=== PATIENT | male | born 1970 | race Caucasian/White ===

== ENCOUNTER 2023-09-04 01:13 | Emergency (ER) | payer BC, SELFPAY ==
[2023-09-04 01:15] VITALS: BP 161/105; PULSE 86; RESP 18; TEMP 36.1; O2SAT 96
--- NOTE | 2023-09-04 01:23 | ED.GENADULT ---
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 Does not remember anything falling in his eye. His eyes gradually gotten red more painful he rates this pain as 5/10. Says his eyes little blurry. Denies any double vision. Is not taking anything for pain. Says he could not sleep tonight. He says it feels just like when he had a corneal abrasion in his eye. He has a foreign body sensation in his right eye at the 12 o'clock position is worse when he blinks. Patient denies any fever cough sore throat runny nose problems eating or drinking voiding or stooling swelling lumps or bumps difficulty breathing any pain elsewhere, dizziness or lightheadedness rash or itching weakness or numbness or any other complaints. 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 Related Data Allergies Allergy/AdvReac Type Severity Reaction Status Date / Time No Known Allergies Allergy Unverified 12/21/21 12:27 Review of Systems Review of Systems: All systems reviewed & are unremarkable except as noted in HPI and below [facility] Social History Social History Smoking status: Current every day smoker Exam Narrative: white male patient no apparent distress. Head normocephalic atraumatic. Eyes right eye conjunctiva is injected sclera is nonicteric. His right eyelid was everted and no foreign body was seen. He did have increased inflammation of the conjunctiva at the 12 o'clock position on his right eyelid. Tetracaine drops x2 were used to anesthetize the cornea then fluorescein strips were used but no for fluorescein uptake by the cornea was seen. The eye was then irrigated with saline. Patient tolerated procedure well. His left eye looked more normal there is just a slight inflammation of his conjunctiva. Pupils are equal round react to light extraocular movements were intact. Neurological motor and sensory grossly intact gait was normal patient was alert and oriented x4. Course Vital Signs Vital signs: Vital Signs Temperature 36.1 C L 09/04/23 01:15 Pulse Rate 86 09/04/23 01:15 Respiratory Rate 18 09/04/23 01:15 Blood Pressure 161/105 H 09/04/23 01:15 Pulse Oximetry 96 09/04/23 01:15 Oxygen Delivery Room Air 09/04/23 01:15 Temperature 36.1 C L 09/04/23 01:15 Pulse Rate 86 09/04/23 01:15 Respiratory Rate 18 09/04/23 01:15 Blood Pressure 161/105 H 09/04/23 01:15 Pulse Oximetry 96 09/04/23 01:15 Oxygen Delivery Room Air 09/04/23 01:15 Medical Decision Making [facility] Narrative Medical decision making narrative: ? Patient placed in room: One ? History and physical was performed. 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 Fluorescein exam was negative in the right eye Independently Interpreted by me: Shared decision Making: evaluation was discussed all questions were asked and answered patient agreed with the plan. He would take Cipro Floxin 0.3% drops every 4 hours while awake for 7 days. He would wash hands before and after putting the drops in. He was offered a Toradol shot for pain but instead would
--- NOTE | 2023-09-04 01:27 | PC.NURSE ---
Dr Norman at the bedside
[2023-09-04] MEDS: TETRACAINE HCL 0.5% OPHTH SOLN 4 ML BTL 2 DROP EACH EYE (01:30)
[2023-09-04] MEDS: FLUORESCEIN SOD 1 MG/STRIP EACH EYE (01:31)
[2023-09-04] MEDS: CIPROFLOXACIN HCL 0.3% OP SOLN 2.5 ML BTL 2 DROP EACH EYE (01:31)
[2023-09-04 02:02] VITALS: BP 153/103; PULSE 87; RESP 18; O2SAT 95
== END 2023-09-04 02:02 | disposition home or self-care (01) ==
PROVIDERS: Emergency Provider Emergency Medicine
DX: H10.9 Unspecified conjunctivitis (principal); F17.200 Nicotine dependence, unspecified, uncomplicated
CPT/HCPCS: 99283

== ENCOUNTER 2024-07-01 23:04 | Emergency (ER) | payer SELFPAY ==
--- OUTSIDE RECORDS SUMMARY | 2024-07-01 23:06 | XMS_ITS | Referral Summary ---
Author Organization [facility] Address [address] [place] [address] Care Team Providers Care Ticket Clerk Name Role Phone Sin Sanchez Primary Care Provider [phone] Allergies No known active allergies Medications levoFLOXacin (LEVAQUIN) 500 mg tabletIndicatio ns:Urinary Tract/Genitouri nary Infection Take 1 tablet (500 mg total) by mouth daily 10 tablet 1 Active Additional Information Patient not taking.Reported on 03/10/2021 HYDROcodone-sam taminophen (NORCO) 5-325 mg per tabletIndicatio ns:Pain Take 1-2 tablets by mouth every 4 (four) hours as needed for pain Do not exceed 8 tablets/day. 12 tablet 1 Active Additional Information Patient not taking.Reported on 03/10/2021 Active Problems Problem Noted Date Diagnosed Date Primary osteoarthritis of right knee 03/10/2021 Social History Tobacco Use Types Packs/Day Years Used Date Smoking Tobacco: Every Day Personal Safety Answer Date Recorded Getting School Help Needed Not on file 04/16 Sex and Gender Information Value Date Recorded Sex Assigned at Not on file Legal Sex Male 2:14 PM CDT Gender Identity Not on file Sexual Orientation Not on file Last Filed Vital Signs Vital Sign Reading Time Taken Comments Blood Pressure 130/84 03/10/2021 2:14 PM 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 Pulse 79 03/10/2021 2:14 PM DISABILITY 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 Temperature 36.7 C (98 F) 09/01/2020 2:40 PM CDT Respiratory Rate 18 09/01/2020 2:41 PM CDT Oxygen Saturation 97% 09/01/2020 2:41 PM CDT Inhaled Oxygen Concentration - - Weight 93.4 kg (206 lb) 03/10/2021 2:14 PM DISABILITY 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 Height 177.8 cm (5' 10 ) 03/10/2021 2:14 PM DISABILITY 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 Body Mass Index 29.56 03/10/2021 2:14 PM DISABILITY 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 Plan of Treatment Not on file Insurance [employer] Care Teams Ticket Clerk Relationship Specialty Start Date End Date Sin Sanchez PA [address] [place] [address] PCP - General 09/01/20
--- OUTSIDE RECORDS SUMMARY | 2024-07-01 23:06 | XMS_ITS | Data Portability ---
Author Organization [facility] Address [address] [place] [address] Care Team Providers Care Pediatric Urologist Name Role Phone NISA SHEPHERD Primary Care Provider Assessment No assessment recorded. Plan of Treatment Reminders Order Date Submit Date Provider Last Modified By Organization Details Last Modified Time Details Appointments None recorded. Lab noninvasiv e colorectal cancer DNA + occult blood screening, QL, stool 2021 [facility] (Cologuard Orders Only), [address], [address], [place], [address], 17:57:40 CBC 2021 [facility], [address] [place] [address], [address], [place], [address], 06:17:04 CMP, serum or plasma 2021 [facility], [address] [place] [address], [address], [place], [address], 06:17:02 lipid panel, serum 2021 [facility], [address] [place] [address], [address], [place], [address], 06:17:02 HbA1c (hemoglobi n A1c), blood 2021 [facility] In-Office Order, Internal Use Only DO Not Attach Compendium DO Not Attach Compendium, Do Not Delete/merge, [id number] 2 19:28:32 PSA, serum or plasma 2021 022 [facility], [address] [place], [place] [address]d[address]n [address], [address], [place], [address], 2 15:09:36 fecal occult blood, immunoassa y, stool 2019 [facility], [address] [place] [address], [address], [place], [address], 0 18:14:03 CBC 2019 [facility], [address] [place] [address], [address], [place], [address], 0 15:09:34 CMP, serum or plasma 2019 020 [facility], [address] [place] [address], [address], [place], [address], 0 15:09:33 lipid panel, serum 2019 [facility], [address] [place] [address], [address], [place], [address], 0 15:09:35 PSA, serum or plasma 2019 020 [facility], [address] [place] [address], [address], [place], [address], 0 15:09:36 Referral None recorded. Procedures None recorded. Surgeries None recorded. Imaging XR, knee 2020 021 [facility], [address], [place], [address], 1 13:02:19 Medication Orders None recorded. Patient TargetsNo targets recorded. Patient InstructionsNo instructions recorded. Reason for Referral None Reported. Results Created Date Observation Date Name Description Value Unit Range Abnormal Flag Note LastModifiedBy Organization Detail LastModifiedTime 12/04/1912/06/2019 CMP, serum or plasm a glucose 105 mg/dL 65-99 above high normal Not Available [facility] ([facility]) [address] [place], [address], 12/06/2019 15:09:33 12/04/1912/06/2019 CMP, serum or plasm a BUN 15 mg/dL 6-24 Not Available [facility] ([facility]) [address] [place], [address], 12/06/2019 15:09:33 12/04/1912/06/2019 CMP, serum or plasm a creatinine 0.90 mg/dL 0.76-1 .27 Not Available [facility] ([facility]) [address] [place], [address], 12/06/2019 15:09:33 12/04/1912/06/2019 CMP, serum or plasm a eGFR if nonafricn AM 99 mL/mi n/1.7 3 >59 Not Available [facility] ([facility]) [address] [place], [address], 12/06/2019 15:09:33 12/04/1912/06/2019 CMP, serum or plasm a eGFR if africn AM 114 mL/mi n/1.7 3 >59 Not Available [facility] ([facility]) [address] [place], [address], 12/06/2019 15:09:33 12/04/1912/06/2019 CMP, serum or plasm a BUN/creatini ne ratio 17 9-20 Not Available [facility] ([facility]) [address] [place], [address], 12/06/2019 15:09:33 12/04/19 20 12/06/2019 CMP, serum or plasm a sodium 140 mmol/ L 134-14 4 Not Available [facility] ([facility]) [address] [place], [address], 12/06/2019 15:09:33 12/04/19 20 12/06/2019 CMP, serum or plasm a potassium 4.0 mmol/ L 3.5-5. 2 Not Available [facility] ([facility]) [address] [place], [address], 12/06/2019 15:09:33 12/04/1912/06/2019 CMP, serum or plasm a chloride 105 mmol/ L 96-106 Not Available [facility] ([facility]) [address] [place], [address], 12/06/2019 15:09:33 12/04/1912/06/2019 CMP, serum or plasm a carbon dioxide, total 24 mmol/ L 20- Not Available [facility] ([facility]) [address] [place], [address], 12/06/2019 15:09:33 12/04/1912/06/2019 CMP, serum or plasm a calcium 8.9 mg/dL 8.7-10 .2 Not Available [facility] ([facility]) [address] [place], [address], 12/06/2019 15:09:33 12/04/1912/06/2019 CMP, serum or plasm a protein, total 7.0 g/dL 6.0-8. 5 Not Available [facility] ([facility]) [address] [place], [address], 12/06/2019 15:09:33 12/04/19 20 12/06/2019 CMP, serum or plasm a albumin 4.3 g/dL 3.8-4. 9 Not Available [facility] ([facility]) [address] [place], [address], 12/06/2019 15:09:33 12/04/19 20 12/06/2019 CMP, serum or plasm a globulin, total 2.7 g/dL 1.5-4. 5 Not Available [facility] ([facility]) [address] [place], [address], 12/06/2019 15:09:33 12/04/19 20 12/06/2019 CMP, serum or plasm a A/G ratio 1.6 1.2-2. 2 Not Available [facility] ([facility]) [address] [place], [address], 12/06/2019 15:09:33 12/04/19 20 12/06/2019 CMP, serum or plasm a bilirubin, total 0.3 mg/dL 0.0-1. 2 Not Available [facility] ([facility]) [address] [place], [address], 12/06/2019 15:09:33 12/04/19 20 12/06/2019 CMP, serum or plasm a alkaline phosphatase 162 IU/L 39-117 above high normal Not Available [facility] ([facility]) [address] [place], [address], 12/06/2019 15:09:33 12/04/19 20 12/06/2019 CMP, serum or plasm a AST (SGOT) 25 IU/L 0-40 Not Available [facility] ([facility]) [address] [place], [address], 12/06/2019 15:09:33 12/04/19 20 12/06/2019 CMP, serum or plasm a ALT (SGPT) 30 IU/L 0-44 Not Available [facility] ([facility]) [address] [place], [address], 12/06/2019 15:09:33 12/04/19 20 12/06/2019 CBC WBC 7.7 x10e3 /uL 3.4-10 .8 Not Available [facility] ([facility]) [address] [facility], [place], [address], 12/06/2019 15:09:34 12/04/19 20 12/06/2019 CBC RBC 4.80 x10e6 /uL 4.14-5 .80 Not Available [facility] ([facility]) [address] [facility], [place], [address], 12/06/2019 15:09:34 12/04/19 20 12/06/2019 CBC hemoglobin 15.8 g/dL 13.0-1 7.7 Not Available [facility] ([facility]) [address] [place], [address], 12/06/2019 15:09:34 12/04/19 20 12/06/2019 CBC hematocrit 46.4 % 37.5-5 1.0 Not Available [facility] ([facility]) [address] [place], [address], 12/06/2019 15:09:34 12/04/1912/06/2019 CBC MCV 97 fL 79-97 Not Available [facility] ([facility]) [address] [place], [address], 12/06/2019 15:09:34 12/04/19 20 12/06/2019 CBC MCH 32.9 pg 26.6-3 3.0 Not Available [facility] ([facility]) [address] [place], [address], 12/06/2019 15:09:34 12/04/19 20 12/06/2019 CBC MCHC 34.1 g/dL 31.5-3 5.7 Not Available [facility] ([facility]) [address] [place], [address], 12/06/2019 15:09:34 12/04/19 20 12/06/2019 CBC RDW 12.4 % 11.6-1 5.4 Not Available [facility] ([facility]) [address] [facility], [place], [address], 12/06/2019 15:09:34 12/04/19 20 12/06/2019 CBC platelets 246 x10e3 /uL 150-45 0 Not Available [facility] ([facility]) [address] [facility], [place], [address], 12/06/2019 15:09:34 12/04/19 20 12/06/2019 CBC NRBC [employer] Not Available [facility] ([facility]) [address] [place], [address], 12/06/2019 15:09:34 12/04/19 20 12/06/2019 lipid panel , serum cholesterol, total 175 mg/dL 100-19 9 Not Available [facility] ([facility]) [address] [place], [address], 12/06/2019 15:09:35 12/04/19 20 12/06/2019 lipid panel , serum triglyceride s 204 mg/dL 0-149 above high normal Not Available [facility] ([facility]) [address] [place], [address], 12/06/2019 15:09:35 12/04/19 20 12/06/2019 lipid panel , serum HDL cholesterol 38 mg/dL >39 below low normal Not Available [facility] ([facility]) [address] [place], [address], 12/06/2019 15:09:35 12/04/19 20 12/06/2019 lipid panel , serum VLDL cholesterol geetha 35 mg/dL 5-40 Not Available [facility] ([facility]) [address] [place], [address], 12/06/2019 15:09:35 12/04/19 20 12/06/2019 lipid panel , serum LDL chol calc ([facility]) 102 mg/dL 0-99 above high normal Not Available [facility] ([facility]) [address] [facility] [place], [address], 12/06/2019 15:09:35 12/04/19 20 12/06/2019 lipid panel , serum comment: [employer] Not Available [facility] ([facility]) [address] [facility], [place], [address], 12/06/2019 15:09:35 12/04/19 20 12/06/2019 PSA, serum or plasm a prostate specific Ag, serum 1.0 NG/mL 0.0-4. 0 Geovanny ECLIA metho dolog y. Accor ding to the Ameri can Urolo gical Assoc iatio n, Serum PSA shoul d decre ase and remai n at undet ectab le level s after radic al prost atect abrahan. The AUA defin es bioch emica l recur rence as an initi al PSA value 0.2 ng/mL or great er follo wed by a subse quent confi rmato ry PSA value 0.2 ng/mL or great er. Value s obtai angus with diffe rent assay metho ds or kits canno t be used inter mendoza eably . Resul ts canno t be inter prete d as absol jassi evide nce of the prese nce or absen ce of heidy mora se. Not Available [facility] ([facility]) [address] [facility], [place], [address], 12/06/2019 15:09:36 12/04/19 20 12/06/2019 PSA, serum or plasm a pdf . Not Available [facility] ([facility]) [address] [facility], [place], [address], 12/06/2019 15:09:36 12/04/19 20 12/06/2019 cardi ovasc ular asses sment panel , serum interpretati on Note Suppl ement al repor t is avail able. Not Available [facility] ([facility]) [address] [facility], [place], [address], 12/06/2019 15:09:37 10/2012/06/2019 cardi jeremy siddiqui asses sment panel , serum pdf . Not Available [facility] ([facility]) [address] [place], [address], 12/06/2019 15:09:37 12/09/1912/09/2021 LIPID PANEL cholesterol, total 196.5 mg/dL 140.0- 200.0 Not Available [facility] ([facility]) [address] [place], [address], 12/10/2021 06:17:02 12/09/1912/09/2021 LIPID PANEL triglyceride s 151 mg/dL <=150 above high normal Not Available [facility] ([facility]) [address] [place], [address], 12/10/2021 06:17:02 12/09/1912/09/2021 LIPID PANEL HDL cholesterol 39.5 mg/dL 40.0-1 00.0 below low normal Not Available [facility] ([facility]) [address] [place], [address], 12/10/2021 06:17:02 12/09/1912/09/2021 LIPID PANEL VLDL cholesterol geetha 30.20 mg/dL 5.00-4 0.00 Not Available [facility] ([facility]) [address] [place], [address], 12/10/2021 06:17:02 12/09/1912/09/2021 LIPID PANEL LDL chol calc ([facility]) 129.9 Not Available [facility] ([facility]) [address] [place], [address], 12/10/2021 06:17:02 12/09/1912/09/2021 COMP. METAB OLIC PANEL (14) glucose 87 mg/dL 65-99 ANION GP 18.0 mmol/ L N OSMOL 284.0 mOsM/ L N REFER ENCE RANGE : 275.0 -301. 0 Not Available [facility] ([facility]) [address] [facility] [place], [address], 12/10/2021 06:17:02 12/09/1912/09/2021 COMP. METAB OLIC PANEL (14) BUN 18 mg/dL 8-26 Not Available [facility] ([facility]) [address] [facility] [place], [address], 12/10/2021 06:17:02 12/09/19 22 12/09/2021 COMP. METAB OLIC PANEL (14) creatinine 0.81 mg/dL 0.50-1 .40 Not Available [facility] ([facility]) [address] [facility] [place], [address], 12/10/2021 06:17:02 12/09/19 22 12/09/2021 COMP. METAB OLIC PANEL (14) eGFR 105 mL/mi n/1.7 3 >=60 Not Available [facility] ([facility]) [address] [facility] [place], [address], 12/10/2021 06:17:02 12/09/19 22 12/09/2021 COMP. METAB OLIC PANEL (14) BUN/creatini ne ratio 21.9 Not Available [facility] ([facility]) [address] [facility] [place], [address], 12/10/2021 06:17:02 12/09/19 22 12/09/2021 COMP. METAB OLIC PANEL (14) sodium 142.0 mmol/ L 136.0- 144.0 Not Available [facility] ([facility]) [address] [facility] [place], [address], 12/10/2021 06:17:02 12/09/19 22 12/09/2021 COMP. METAB OLIC PANEL (14) potassium 4.5 mmol/ L 3.5-5. 3 Not Available [facility] ([facility]) [address] [facility] [place], [address], 12/10/2021 06:17:02 12/09/19 22 12/09/2021 COMP. METAB OLIC PANEL (14) chloride 104 mmol/ l 101-11 1 Not Available [facility] ([facility]) [address] [facility] [place], [address], 12/10/2021 06:17:02 12/09/19 22 12/09/2021 COMP. METAB OLIC PANEL (14) carbon dioxide, total 24.5 mmol/ L 21.0-3 2.0 Not Available [facility] ([facility]) [address] [facility] [place], [address], 12/10/2021 06:17:02 12/09/19 22 12/09/2021 COMP. METAB OLIC PANEL (14) calcium 9.4 mg/dL 8.2-10 .0 Not Available [facility] ([facility]) [address] [facility] [place], [address], 12/10/2021 06:17:02 12/09/19 22 12/09/2021 COMP. METAB OLIC PANEL (14) protein, total 6.7 g/dL 6.7-8. 2 Not Available [facility] ([facility]) [address] [facility] [place], [address], 12/10/2021 06:17:02 12/09/19 22 12/09/2021 COMP. METAB OLIC PANEL (14) albumin 4.3 g/dL 3.5-5. 5 Not Available [facility] ([facility]) [address] [facility] [place], [address], 12/10/2021 06:17:02 12/09/1912/09/2021 COMP. METAB OLIC PANEL (14) globulin, total 2.4 g/dL 1.5-4. 5 Not Available [facility] ([facility]) [address] [place], [address], 12/10/2021 06:17:02 12/09/19 22 12/09/2021 COMP. METAB OLIC PANEL (14) A/G ratio 1.8 Not Available [facility] ([facility]) [address] [facility] [place], [address], 12/10/2021 06:17:02 12/09/19 22 12/09/2021 COMP. METAB OLIC PANEL (14) bilirubin, total 0.3 mg/dL 0.0-1. 2 Not Available [facility] ([facility]) [address] [facility], [place], [address], 12/10/2021 06:17:02 12/09/19 22 12/09/2021 COMP. METAB OLIC PANEL (14) alkaline phosphatase 150.6 IU/L 42.0-1 21.0 above high normal Not Available [facility] ([facility]) [address] [facility], [place], [address], 12/10/2021 06:17:02 12/09/19 22 12/09/2021 COMP. METAB OLIC PANEL (14) AST (SGOT) 25.6 U/L 10.0-4 2.0 Not Available [facility] ([facility]) [address] [facility], [place], [address], 12/10/2021 06:17:02 12/09/19 22 12/09/2021 COMP. METAB OLIC PANEL (14) ALT (SGPT) 36.5 U/L 10.0-6 0.0 Not Available [facility] ([facility]) [address] [place], [address], 12/10/2021 06:17:02 12/09/1912/09/2021 CBC, PLATE LET, NO DIFFE RENTI AL WBC 6.8 K/uL 3.4-10 .8 Not Available [facility] ([facility]) [address] [place], [address], 12/10/2021 06:17:03 12/09/1912/09/2021 CBC, PLATE LET, NO DIFFE RENTI AL RBC 4.9 M/uL 4.5-6. 3 Not Available [facility] ([facility]) [address] [facility], [place], [address], 12/10/2021 06:17:03 12/09/19 22 12/09/2021 CBC, PLATE LET, NO DIFFE RENTI AL hemoglobin 15.8 g/dL 13.5-1 7.5 Not Available [facility] ([facility]) [address] [place], [address], 12/10/2021 06:17:03 12/09/1912/09/2021 CBC, PLATE LET, NO DIFFE RENTI AL hematocrit 46.0 % 40.0-5 2.0 Not Available [facility] ([facility]) [address] [place], [address], 12/10/2021 06:17:03 12/09/1912/09/2021 CBC, PLATE LET, NO DIFFE RENTI AL MCV 95 fL 80-95 Not Available [facility] ([facility]) [address] [place], [address], 12/10/2021 06:17:03 12/09/1912/09/2021 CBC, PLATE LET, NO DIFFE RENTI AL MCH 32 pg 27-32 Not Available [facility] ([facility]) [address] [place], [address], 12/10/2021 06:17:03 12/09/1912/09/2021 CBC, PLATE LET, NO DIFFE RENTI AL MCHC 34 g/dL 32-36 Not Available [facility] ([facility]) [address] [place], [address], 12/10/2021 06:17:03 12/09/1912/09/2021 CBC, PLATE LET, NO DIFFE RENTI AL RDW 12.3 % 11.5-1 4.5 Not Available [facility] ([facility]) [address] [facility], [place], [address], 12/10/2021 06:17:03 12/09/1912/09/2021 CBC, PLATE LET, NO DIFFE RENTI AL platelets 229 K/uL 155-37 9 MPV 10.2 FL 8.9-1 2.7 N Not Available [facility] ([facility]) [address] [facility], [place], [address], 12/10/2021 06:17:03 12/09/1912/09/2021 CBC, PLATE LET, NO DIFFE RENTI AL NRBC 0 % Not Available [facility] ([facility]) [address] [facility], [place], [address], 12/10/2021 06:17:03 12/09/1912/10/2021 PSA (SERI AL MONIT OR) prostate specific Ag 0.8 NG/mL 0.0-4. 0 Geovanny ECLIA metho dolog y. Accor ding to the Ameri can Urolo gical Assoc iatio n, Serum PSA shoul d decre ase and remai n at undet ectab le level s after radic al prost atect abrahan. The AUA defin es bioch emica l recur rence as an initi al PSA value 0.2 ng/mL or great er follo wed by a subse quent confi rmato ry PSA value 0.2 ng/mL or great er. Value s obtai angus with diffe rent assay metho ds or kits canno t be used inter mendoza eably . Resul ts canno t be inter prete d as absol jassi evide nce of the prese nce or absen ce of heidy wrighta se. Not Available [facility] ([facility]) [address] [facility], [place], [address], 12/10/2021 15:09:36 10/25/20 22 12/10/2021 PSA (SERI AL MONIT OR) pdf . Not Available [facility] ([facility]) [address] [facility], [place], [address], 12/10/2021 15:09:36 12/09/19 22 12/09/2021 CARDI OVASC ULAR REPOR T interpretati on Note Suppl ement al repor t is avail able. Not Available [facility] ([facility]) [address] [facility], [place], [address], 12/10/2021 06:17:03 12/09/19 22 12/09/2021 CARDI OVASC ULAR REPOR T pdf . Not Available [facility] ([facility]) [address] [facility], [place], [address], 12/10/2021 06:17:03 12/09/19 22 12/08/2021 HbA1c (hemo globi n A1c), blood HbA1c 5.6 Not Available In-Office Order Internal Use Only DO Not Attach Compendium DO Not Attach Compendium, Do Not Delete/merge, [id number] 12/08/2021 18:43:29 12/23/19 22 12/22/2021 COLOG UARD cologuard result reportable Negati ve negati ve NEGAT SADIA TEST RESUL T. A negat sadia Colog uard resul t indic ates a low likel ihood that a color ectal cance r (CRC) or advan balwinder adeno ma (bobbi omato us polyp s with more advan balwinder pre-m align ant featu res) is prese nt. The chanc e that a perso n with a negat sadia Colog uard test has a color ectal cance r is less than 1 in 1500 (nega tive predi ctive value >99.9 %) or has an advan balwinder adeno ma is less than 5.3% (nega tive predi ctive value 94.7% ). These data are based on a prosp ectiv e cross -sect ional study of 10,00 0 indiv idual s at [facility] risk for color ectal cance r who were scree angus with both Colog uard and colon oscop y. (Impe riale T. et al, N Engl J Med 2014; 370(1 4):12 86-12 97) The marj l value (refe rence range ) for this assay is negat sadia. COLOG UARD RE-SC REENI NG RECOM MENDA TION: Perio dic color ectal cance r scree josh is an impor tant part of preve ntive healt hcare for asymp tomat ic indiv idual s at [facility] risk for color ectal cance r. Follo wing a negat sadia Colog uard resul t, the Ameri can Cance r Socie ty and U.S. Multi -Soci ety Task Force scree josh guide lines recom mend a Colog uard re-sc reeni ng inter doug of 3 years . Refer ences : Ameri can Cance r Socie ty Guide line for Color ectal Cance r Scree josh: https ://bethany w.can cer.o rg/ca ncer/ colon -rect al-ca ncer/ detec tion- diagn osis- stagi ng/ac s-rec ommen datio ns.ht ml.; Angel DK, Arthur crow CR, Brian HarringtonK, Color ectal Cance r Scree josh: Recom menda tions for Physi cians and Patie nts from the U.S. Multi -Soci ety Task Force on Color ectal Cance r Scree josh , Am Juany silvantalejandro rolog y 2017; 112:1 016-1 030. TEST DESCR IPTIO N: [place] site algor ithmi c silver sis of stool DNA-b iomar kers with hemog lobin immun oassa y. Quant itati ve value s of indiv idual bioma rkers are not repor table and are not assoc iated with indiv idual bioma rker resul t refer ence range s. Colog uard is inten ded for color ectal cance r scree josh of adult s of eithe r sex, 45 years or older , who are at [facility] for color ectal cance r (CRC) . Colog uard has been appro madhu for use by the U.S. FDA. The perfo rmanc e of Colog uard was estab lishe d in a cross secti onal study of [facility] adult s aged 50-84 . Colog uard perfo rmanc e in patie nts ages 45 to 49 years was estim ated by maisha-g landry silver sis of near- age group s. Colon oscop ies perfo rmed for a posit sadia resul t may find as the most clini fred signi fican t lesio n: color ectal cance r [4.0% ], advan balwinder adeno ma (incl uding sessi le suresh flora polyp s great er than or equal to 1cm diame ter) [20%] or non- advan balwinder adeno ma [31%] ; or no color ectal neopl veto [45%] . These estim ates are deriv ed from a prosp ectiv e cross -sect ional scree josh study of 0 indiv idual s at [facility] risk for color ectal cance r who were scree angus with both Colog uard and colon oscop y. (Pieter Venegas et al, N Engl J Med 2014; 370(1 4):12 86-12 97.) Colog uard may produ ce a false negat sadia or false posit sadia resul t (no color ectal cance r or preca ncero us polyp prese nt at colon oscop y follo w up). A negat sadia Colog uard test resul t does not guara ntee the absen ce of CRC or advan balwinder adeno ma (pre- cance r). The curre nt Colog uard scree josh inter doug is every 3 years . (Amer ican Cance r Socie ty and U.S. Multi -Soci ety Task Force ). Colog uard perfo rmanc e data in a 0 patie nt pivot al study using colon oscop y as the refer ence metho d can be acces sed at the follo wing locat ion: www.e xactl abs.c om/re sults . Addit ional descr iptio n of the Colog uard test proce ss, warni ngs and preca ution s can be found at www.c maryjane ken.emily om. Not Available [facility] (Cologuard Orders Only) [address], [place], [address], 12/28/2021 17:57:39 02/12/20 21 02/11/2021 XR, knee No observ ation record ed. [facility] [address], [place], [address], 02/11/2021 13:03:18 Result Notes None recorded. Procedures Surgical History Date Name Laterality Status Provider Name and Address Organization Details Recorded Time Appendectomy completed Sophia Prather MA [place] - [place] 09/22/2016 15:32:26 Imaging Results Imaging Date Name Status LastModified by Organiz ation Details LastModified Time 02/11/2021 XR, knee completed [facility] [address], [place], [address], 02/11/2021 13:03:18 Procedure Notes None recorded. Medical Equipment None Reported. Allergies No known drug allergies Medications Name Sig Start Date Stop Date Status Note LastModified by Organization Details LastModified Time amoxicillin 500 mg capsule 09/22 completed Not Available Not Available Not Available hydrocodone 5 mg-acetamin ophen 325 mg tablet TAKE 1 TO 2 TABLETS BY MOUTH EVERY 4 HOURS NEEDED FOR PAIN . DO NOT EXCEED 8 TABLETS PER DAY 12/08 completed Not Available Not Available Not Available Depo-Medrol 80 mg/mL suspension for injection Take 1 mL by injection route. 12/03 completed Not Available Not Available Not Available levofloxaci n 500 mg tablet TAKE 1 TABLET BY MOUTH DAILY 12/08 completed Not Available Not Available Not Available amoxicillin 875 mg-potassiu m clavulanate 125 mg tablet TAKE 1 TABLET BY MOUTH EVERY 12 HOURS FOR 10 DAYS active Not Available Not Available No t Available Paxlovid 300 mg (150 mg x 2)-100 mg tablets in a dose pack TK 2 NIRMATREL VIR TS AND 1 RITONAVIR T TOGETHER PO BID FOR 5 DAYS active Not Available Not Available No t Available Vitals Date Recorded Body height Body mass index (BMI) Body weight Body temperature Oxygen saturation Oxygen saturation in Arterial blood by Pulse oximetry Heart rate Systolic blood pressure Diastolic blood pressure Provider Name and Address Organization Details Last Updated DateTime 0 177.8 cm 28.2 kg/m2 12396.2 g 97.9 [degF] 97 % 97 % 90 /min 116 mm[Hg] 80 mm[Hg] Caren Latham MA [facility] 0 17:45:02 Date Recorded Body height Body temperature Oxygen saturation Oxygen saturation in Arterial blood by Pulse oximetry Heart rate Body mass index (BMI) Body weight Systolic blood pressure Diastolic blood pressure Provider Name and Address Organization Details Last Updated DateTime 1 177.8 cm 98.6 [degF] 97 % 97 % 75 /min 29.1 kg/m2 27067.2 5 g 112 mm[Hg] 82 mm[Hg] Caren Latham MA [facility] 1 17:14:48 Date Recorded Body weight Body height Body mass index (BMI) Body temperature Oxygen saturation Oxygen saturation in Arterial blood by Pulse oximetry Heart rate Systolic blood pressure Diastolic blood pressure Provider Name and Address Organization Details Last Updated DateTime 2 93564.2 1 g 177.8 cm 29.8 kg/m2 97.7 [degF] 97 % 97 % 80 /min 118 mm[Hg] 86 mm[Hg] Caren Latham MA [facility] 2 18:22:33 Social History Question Answer Notes LastModified by Organizat ion Details LastModified Time Tobacco Smoking Status Current Every Day Smoker Sophia Prather MA [facility], [facility] 09/22/2016 15:32:51 What Is Your Level Of Caffeine Consumption? Moderate Information not available 12/04/2019 How Much Tobacco Do You Chew? None Information not available 12/04/2019 In The 14 Days Before Symptom Onset, Have You Had Close Contact With A Laboratory-confirm ed COVID-19 While That Case Was Ill? No Information n ot available 06/19/2020 In The 14 Days Before Symptom Onset, Have You Had Close Contact With A Person Who Is Under Investigation For COVID-19 While That Person Was Ill? No Information not available 06/19/2020 Have You Been To An Area Known To Be High Risk For COVID-19? No Information not available 06/19/2020 What Type Of Diet Are You Following? REGULAR Information n ot available 12/04/2019 Which Illicit Or Recreational Drugs Have You Used? None Information not available 12/04/2019 Marital Status Informatio n not available 12/04/2019 What Was The Date Of Your Most Recent Tobacco Screening? 12/08/2021 Information not available 12/08/2021 What Is Your Relationship Status? Information not available 06/19/2020 Do You Have Smoke And Carbon Monoxide Detectors In Your Home? Yes Information not available 06/19/2020 Are You Passively Exposed To Smoke? Yes Information no t available 12/08/2021 How Much Tobacco Do You Smoke? 1 PPD [email or web address] Information not available 09/22/2016 Has Tobacco [id number]||2024-07-02 08:58:00|CT_ITS|ELZIMMILIZ|Imaging|[id number]|"CT abdomen pelvis w con Ordering provider: Dwight Mae History: 53 years Male with . LLQ ABD PAIN, LEFT LOWER BACK PAIN X 2 DAYS. VOMITING. . Comparison: None. Technique: CT abdomen and pelvis with IV and without oral contrast. Automated exposure control and it erative reconstruction technique were employed. The dose-length product was 749.46 mGy-cm. 100 ML Omn ipaque 350 was given IV. Findings: VISUALIZED LOWER CHEST: Tiny cysts in the liver segment #8. UPPER ABDOMINAL ORGANS: Liver: Normal. Gallbladder: Normal. Spleen: Normal. Stomach/duodenum: Normal. Pancreas: Normal. Adrenals: Normal. Kidneys: 4 mm stone is seen in the left mid ureter with left hydronephrosis. Tiny stone in the right kidney upper pole. Tiny stone in the left kidney lower pole. PELVIC ORGANS: The bladder is underfilled. Slightly enlarged prostate. BOWEL AND MESENTERY: Colon: No evidence of diverticulitis.. No evidence of appendicitis. Small Bowel: Normal. No obstruction. Peritoneum/mesentery: No free air or free fluid. No mesenteric lymphadenopathy. RETROPERITONEUM: Normal aorta. Retroaortic left renal vein is noted. No retroperitoneal lymphadenopa thy. MUSCULOSKELETAL: Superficial soft tissues: The superficial soft tissues are normal. Bones: Age appropriate degenerative changes of the spine. IMPRESSION: 1. No evidence of appendicitis, diverticulitis or intestinal obstruction. 2. Stone in the left mid ureter with left hydronephrotic changes. 3. Tiny Stone in the right kidney upper pole and the left kidney lower pole. 4. Slightly enlarged. Reviewed, dictated and finalized at location A. IMPRESSION: 1. No evidence of appendicitis, diverticulitis or intestinal obstruction. 2. Stone in the left mid ureter with left hydronephrotic changes. 3. Tiny Stone in the right kidney upper pole and the left kidney lower pole. 4. Slightly enlarged. "
--- OUTSIDE RECORDS SUMMARY | 2024-07-01 23:06 | XMS_ITS | Clinical Summary ---
Author Organization [facility] Address [address] [place] [address] Care Team Providers Care Portable Machine Sander Name Role Phone Sin Sanchez Primary Care Provider [phone] Allergies No known active allergies Medications levoFLOXacin [...] Date Primary osteoarthritis of right knee 03/10/2021 Family History Medical History Relation Name Comments Diabetes Other Relation Name Status Comments Other Social History Tobacco Use Types Packs/Day Years Used Date Smoking Tobacco: Every Day Personal Safety Answer Date Recorded Getting School Help Needed Not on file 04/16 Sex and Gender Information Value Date Recorded Sex Assigned at Not on file Legal Sex Male 2:14 PM CDT Gender Identity Not on file Sexual Orientation Not on file Obstetrics History Last Filed Vital Signs Vital Sign Reading Time Taken Comments Blood Pressure 130/84 03/10/2021 2:[address] [employer] Pulse 79 03/10/2021 2:[address] [facility] Temperature 36.7 C (98 F) 09/01/2020 2:40 PM CDT Respiratory Rate 18 09/01/2020 2:41 PM CDT Oxygen Saturation 97% 09/01/2020 2:41 PM CDT Inhaled Oxygen Concentration - - Weight 93.4 kg (206 lb) 03/10/2021 2:[address] [facility] Height 177.8 cm (5' 10 ) 03/10/2021 2:[address] [facility] Body Mass Index 29.56 03/10/2021 2:[address] [facility] Plan of Treatment Not on file Insurance [employer] Care Teams Portable Machine Sander Relationship Specialty Start Date End Date Sin Sanchez PA [address] [place] [address] PCP - General 09/01/20
[2024-07-01 23:07] VITALS: BP 141/99; PULSE 82; RESP 15; TEMP 36.9; O2SAT 96
--- NOTE | 2024-07-01 23:07 | ECG_ITS ---
Test Date: 2024-07-01 23:16:20 Measurements Intervals [place] Rate: 76 P: 51 MS: 149 QRS: 50 QRSD: 104 T: 50 QT: 392 QTc: 443 Interpretive Statements SINUS RHYTHM CANNOT RULE OUT INFERIOR MYOCARDIAL INFARCTION , PROBABLY OLD [35 ms Q WAVE IN II/aVF] No previous ECG available for comparison Electronically Signed On 07-02-2024 10:46:54 CDT by Ge Fajardo M.D.
--- NOTE | 2024-07-01 23:09 | ED_ITS ---
HPI - General Adult General Chief complaint: Abdominal Pain Stated complaint: Abd Pain Time Seen by Provider: 07/01/24 23:08 History of Present Illness HPI narrative: Sai is a 53M with no significant PMH that presented to the ED with his with abdominal pain, swelling and constipation. He does not know when his last BM was. He was on the toilet all day with no result despite taking ducolax and using enemas. One episode of yesterday but not today. Related Data Allergies Allergy/AdvReac Type Severity Reaction Status Date / Time No Known Allergies Allergy Verified 07/01/24 23:27 Review of Systems 2 Review of Systems: All systems reviewed & are unremarkable except as noted in HPI and below [facility] Social History Social History Smoking status: Current every day smoker Exam 2 Const: General: cooperative, healthy appearing, comfortable, no acute distress, well developed, alert, awake and Physically active O rientation/consciousness: oriented to person, oriented to place and oriented to time HENMT: Head: normal to inspection, normocephalic and atraumatic Ears: h earing grossly normal bilaterally and external ears normal Face/Nose/Sinus: N ormal external nose present Eyes: General: appearance normal, both eyes and all related structures P eriorbital: periorbital findings normal Sclera: sclerae normal Pupils: E qual, round and reactive pupils present Neck: Neck: normal visual inspection Chest: Chest palpation & inspection: normal inspection of the chest Resp: Effort & Inspection: normal respiratory effort, able to speak in complete sentences and no respiratory distress Auscultation: clear to auscultation bilaterally Cardio: Jugular venous distension: no JVD Rate: regular rate Rhythm: r egular rhythm GI: Inspection: distended GI Palp: Yes Tenderness to palpation present (GI), Yes Rigid due to palpation and Yes Rebound tenderness present A uscultation: Hypoactive bowel sounds present Other: Diffusely TTP, especially in the LLQ : Other: Left CVA tenderness Skin: General skin exam: normal color and no rashes or lesions noted Neuro: General: oriented to person, oriented to place and oriented to time Cranial nerves: Yes Equal, round and reactive pupils present Extrem: General: normal to inspection Course Course Emergency Course: Ordered labs, EKG, and CT as well as zofran, morphine and fluids EKG showed NSR with a rate of 76, normal axis and no ST elevation/depression Labs showed mildly decreased kidney function and a mildly elevated CRP. Preliminary CT read showed: Left-sided hydronephrosis, with obstructive uropathy secondary to a 0.3 cm left ureteral. Enlarged prostate. No free air or intestinal obstruction UA had no nitrites and only 1+ leuk esterase, unlikely to be infected. Given these findings symptoms are likely from ureterolithiasis and constipation. Further history revealed the patient eats essentially no fiber and drinks a lot of soda. We discussed diet in detail. He agreed to f/u with his PCP this week. Vital Signs Vital signs: Vital Signs Temperature 98.5 F 07/01/24 23:07 Pulse Rate 82 07/01/24 23:07 Respiratory Rate 15 07/01/24 23:07 Blood Pressure 141/99 H 07/01/24 23:07 Pulse Oximetry 96 07/01/24 23:07 Oxygen Delivery Room Air 07/01/24 23:07 Temperature 99 F 07/02/24 00:31 Pulse Rate 72 07/02/24 00:31 Respiratory Rate 16 07/02/24 00:31 Blood Pressure 133/104 H 07/02/24 00:31 Pulse Oximetry 95 07/02/24 00:31 Oxygen Delivery Room Air 07/02/24 00:31 Medical Decision Making Vital Signs Vital Signs: Vital Signs Temperature 98.5 F 07/01/24 23:07 Pulse Rate 82 07/01/24 23:07 Respiratory Rate 15 07/01/24 23:07 Blood Pressure 141/99 H 07/01/24 23:07 Pulse Oximetry 96 07/01/24 23:07 Oxygen Delivery Room Air 07/01/24 23:07 Temperature 99 F 07/02/24 00:31 Pulse Rate 72 07/02/24 00:31 Respiratory Rate 16 07/02/24 00:31 Blood Pressure 133/104 H 07/02/24 00:31 Pulse Oximetry 95 07/02/24 00:31 Oxygen Delivery Room Air 07/02/24 00:31 Lab Data 07/01/24 23:08 07/01/24 23:08 Labs: Lab Results 07/01/24 07/01/24 Range/Units 00:12 23:08 WBC 9.3 (4.8-10.8) K/mm3 RBC 4.83 (4.70-6.10) M/mm3 Hgb 15.7 (14.0-18.0) g/dL Hct 45.8 (40.0-54.0) % MCV 94.8 (78.0-102.0) fL MCH 32.5 H (27.0-31.0) pg MCHC 34.3 (32-36) g/dL RDW 12.8 (11.6-14.4) % Plt Count 226 (150-420) K/mm3 MPV 8.9 (8.7-11.0) fl Immature Gran % (Auto) 0.3 H (0.0-0.0) % Neut % (Auto) 69.6 (50.0-70.0) % Lymph % (Auto) 23.3 (18.0-42.0) % [place] % (Auto) 5.0 (2.0-11.0) % Eos % (Auto) 1.3 (1.0-6.0) % Baso % (Auto) 0.5 (0.0-1.0) % Lymph # (Auto) 2.17 (1.10-4.50) K/mm3 [place] # (Auto) 0.47 (0.10-0.90) K/mm3 Eos # (Auto) 0.12 (0.02-0.50) K/mm3 Baso # (Auto) 0.05 (0.00-0.10) K/mm3 Abs Immat Gran (auto) 0.03 H (0.00-0.00) K/mm3 Absolute Neuts (auto) 6.49 (1.70-7.20) K/mm3 Absolute Nucleated RBC 0.00 (0.00-0.00) K/mm3 Nucleated RBC % 0.0 (0-0.0) % PT 10.8 (9.50-12.1) Seconds INR 1.0 Sodium 138 (136-145) mmol/L Potassium 3.5 (3.5-5.1) mmol/L Chloride 102 (98-108) mmol/L Carbon Dioxide 28 (21-32) mmol/L Anion Gap 8 (4-12) mmol/L BUN 17 (7-18) mg/dL Creatinine 1.47 H (0.70-1.30) mg/dL Estim Creat Clear Calc 58 ml/min Estimated GFR 50 L (59 - ) Glucose 107 H (70-99) mg/dL Calculated Osmolality 287 (285-295) mOsm/kg Calcium 8.0 L (8.5-10.1) mg/dL Magnesium 2.3 (1.8-2.4) mg/dL Total Bilirubin 0.4 (0.00-1.00) mg/dL AST 22 (15-37) U/L ALT 32 (16-63) U/L Alkaline Phosphatase 164 H (46-116) U/L Troponin I < 4.0 (0.00-60.4) ng/L C-Reactive Protein 3.7 H (0.0-0.9) mg/dL Total Protein 7.1 (6.4-8.2) g/dL Albumin 3.2 L (3.4-5.0) g/dL Lipase 30 (16-77) U/L Urine Color Light yellow (Yellow) Urine Appearance Clear (Clear) Urine pH 6.0 (5.0-8.0) Ur Specific [place] <= 1.005 L (1.010-1.020) Urine Protein Negative (Negative) Urine Glucose (UA) Negative (Negative) Urine Ketones Negative (Negative) Ur Blood (Man) 1+ H (Negative) Urine Nitrate Negative (Negative) Urine Bilirubin Negative (Negative) Urine Urobilinogen 1.0 (0.2-1.0) mg/dL Leukocyte Esterase Rfl Trace H (Negative) LILY/UL Urine RBC 0-2 (0-2) /hpf Discharge Plan Discharge Clinical Impression: Ureterolithiasis, Constipation Patient Disposition: Home Condition: Stable Instructions: High Fiber Diet (ED) Patient Language: Ukrainian Prescriptions: New lactulose [Constulose] 10 gram/15 mL solution 10 g PO DAILY PRN (Reason: constipation) Qty: 1200 0RF tamsulosin 0.4 mg capsule 0.4 mg PO DAILY Qty: 10 0RF hydrocodone-acetaminophen 5-325 mg tablet 1 tablet PO Q8H PRN (Reason: pain) Qty: 10 0RF Follow-up/Referrals: Laura,IRENE Callahan [Primary Care Provider] -
[2024-07-01 23:28] LABS: Basophils Absolute Auto 0.05 K/mm3 (0.00-0.10); Basophils Percent Auto 0.5 % (0.0-1.0); Eosinophils Absolute Auto 0.12 K/mm3 (0.02-0.50); Eosinophils Percent Auto 1.3 % (1.0-6.0); Hematocrit 45.8 % (40.0-54.0); Hemoglobin 15.7 g/dL (14.0-18.0); Immature Granulocyte Absolute 0.03 K/mm3 (0.00-0.00); Immature Granulocyte Percent A 0.3 % (0.0-0.0); Lymphocytes Absolute Auto 2.17 K/mm3 (1.10-4.50); Lymphocytes Percent Auto 23.3 % (18.0-42.0); Mean Corpuscular HGB Conc 34.3 g/dL (32-36); Mean Corpuscular Hemoglobin 32.5 pg (27.0-31.0); Mean Corpuscular Volume 94.8 fL (78.0-102.0); Mean Platelet Volume 8.9 fl (8.7-11.0); Monocytes Absolute Auto 0.47 K/mm3 (0.10-0.90); Neutrophils Absolute Auto 6.49 K/mm3 (1.70-7.20); Neutrophils Percent Auto 69.6 % (50.0-70.0); Platelet Count Result 226 K/mm3 (150-420); Red Blood Count 4.83 M/mm3 (4.70-6.10); Red Cell Distribution Width 12.8 % (11.6-14.4); White Blood Count 9.3 K/mm3 (4.8-10.8)
[2024-07-01] MEDS: LACTATED RINGERS 1,000 ML 999 ML IV CONT (23:33)
[2024-07-01] MEDS: ONDANSETRON INJ 4 MG/2 ML VIAL IV PUSH (23:35)
[2024-07-01] MEDS: MORPHINE SULFATE (*CRX) 4 MG/ML INJ IV PUSH (23:35)
[2024-07-01 23:43] LABS: Alanine Aminotransferase 32 U/L (16-63); Albumin Level 3.2 g/dL (3.4-5.0); Alkaline Phosphatase 164 U/L (46-116); Anion Gap 8 mmol/L (4-12); Aspartate Amino Transferase 22 U/L (15-37); Bilirubin,Total 0.4 mg/dL (0.00-1.00); Blood Urea Nitrogen 17 mg/dL (7-18); CRP 3.7 mg/dL (0.0-0.9); Carbon Dioxide 28 mmol/L (21-32); Chloride 102 mmol/L (98-108); Estimated CRCL calculation 58 ml/min; Estimated Glomerular Filt Rate 50; Glucose 107 mg/dL (70-99); Lipase 30 U/L (16-77); Magnesium 2.3 mg/dL (1.8-2.4); Osmolality Calculated 287 mOsm/kg (285-295); Potassium 3.5 mmol/L (3.5-5.1); Prothrombin Time 10.8 Seconds (9.50-12.1); Sodium 138 mmol/L (136-145); Total Protein 7.1 g/dL (6.4-8.2)
[2024-07-01 23:45] VITALS: O2SAT 95
[2024-07-01 23:46] VITALS: BP 143/103; O2SAT 93
[2024-07-01 23:46] LABS: Troponin I < 4.0 ng/L (0.00-60.4)
[2024-07-02] VITALS (9 sets, daily range): BP systolic 133–149; BP diastolic 93–104; PULSE 72–79; RESP 16; TEMP 37.2; O2SAT 94–95
--- NOTE | 2024-07-02 00:02 | PC.NURSE ---
patient ambulatory to bathroom at this time. attempting to have BM.
--- NOTE | 2024-07-02 00:08 | PC.NURSE ---
patient unable to have BM however did provide urine specimen, sent to lab per RN. patient taken for CT scan via stretcher per radio operator ground. spouse remains at bedside.
--- NOTE | 2024-07-02 00:19 | PC.NURSE ---
patient returned from imaging. IVF nearing completion. patient spouse at bedside. call light within reach.
[2024-07-02 00:44] LABS: Add Urine Microscopic? YES; Appearance Urine Clear (Clear); Bilirubin Urine Negative (Negative); Blood Urine 1+ (Negative); Color Urine Light Yellow (Yellow); Glucose Urine UA Negative (Negative); Ketones Urine Negative (Negative); Leukocyte Esterase Ur Trace LEU/UL (Negative); Nitrate Urine Negative (Negative); Protein Urine Negative (Negative); Specific Grav Ur <= 1.005 (1.010-1.020)
--- NOTE | 2024-07-02 00:48 | PC.NURSE ---
RN to bedside to medicate patient however patient now stating his pain is zero out of ten. spouse at bedside. patient denies further needs. awaiting results of ct scan and labs. vss. RN monitoring.
[2024-07-02 00:49] LABS: RBC Urine 0-2 /hpf (0-2)
--- NOTE | 2024-07-02 00:56 | PC.NURSE ---
ERP Dr. Mae at bedside speaking with patient and his spouse about results of imaging and plan of care.
--- OUTSIDE RECORDS SUMMARY | 2024-07-02 01:22 | XMS_ITS | Clinical Summary ---
Author Organization [facility] Address [address] [place] [address] Care Team Providers Care Supervisor Hand Silvering Name Role Phone Sin Sanchez Primary Care Provider [phone] Allergies No known active allergies Medications levoFLOXacin [...] Comments Blood Pressure 130/84 03/10/2021 2:14 PM [employer] Pulse 79 03/10/2021 2:14 PM [employer] Temperature 36.7 C (98 F) 09/01/2020 2:40 PM CDT Respiratory Rate 18 09/01/2020 2:41 PM CDT Oxygen Saturation 97% 09/01/2020 2:41 PM CDT Inhaled Oxygen Concentration - - Weight 93.4 kg (206 lb) 03/10/2021 2:14 PM [employer] Height 177.8 cm (5' 10 ) 03/10/2021 2:14 PM [employer] Body Mass Index 29.56 03/10/2021 2:14 PM [employer] Plan of Treatment Not on file Insurance [employer] Care Teams Supervisor Hand Silvering Relationship Specialty Start Date End Date Sin Sanchez PA [address] [place] [address] PCP - General 09/01/20
--- OUTSIDE RECORDS SUMMARY | 2024-07-02 01:22 | XMS_ITS | Referral Summary ---
Author Organization [facility] Address [address] [place] [address] Care Team Providers Care County Administrator Name Role Phone Sin Sanchez Primary Care Provider [phone] Allergies No known active allergies Medications levoFLOXacin [...] Comments Blood Pressure 130/84 03/10/2021 2:14 PM [employer] Pulse 79 03/10/2021 2:14 PM [employer] Temperature 36.7 C (98 F) 09/01/2020 2:40 PM CDT Respiratory Rate 18 09/01/2020 2:41 PM CDT Oxygen Saturation 97% 09/01/2020 2:41 PM CDT Inhaled Oxygen Concentration - - Weight 93.4 kg (206 lb) 03/10/2021 2:14 PM [employer] Height 177.8 cm (5' 10 ) 03/10/2021 2:14 PM [employer] Body Mass Index 29.56 03/10/2021 2:14 PM [employer] Plan of Treatment Not on file Insurance [employer] Care Teams County Administrator Relationship Specialty Start Date End Date Sin Sanchez PA [address] [place] [address] PCP - General 09/01/20
== END 2024-07-02 01:16 | disposition home or self-care (01) ==
LOC: CHSED 07-02 01:21
PROVIDERS: Emergency Provider Family Medicine; PCP Physician Assistant
DX: N20.1 Calculus of ureter (principal); K59.00 Constipation, unspecified; F17.200 Nicotine dependence, unspecified, uncomplicated
CPT/HCPCS: 36415; 74177; 80053; 81001; 83690; 83735; 84484; 85025; 85610; 86140; 93005; 96361; 96374; 96375; 99284; J2270; J2405; J7120; Q9967